=== PATIENT | female | born 1980 | race Caucasian/White ===

== ENCOUNTER → 2021-02-26 | Outpatient (CLI) | payer OTHER ==
[2021-02-26 11:52] LABS: BASO # 0.07 (0.02-0.10); EOS # 0.39 (0.04-0.40); EOS % 4.9 % (1.0-5.0); HEMATOCRIT 39.5 % (37.0-47.0); HEMOGLOBIN 13.1 g/dL (12.5-16.0); LYMPH# 1.85 (1.50-4.00); MEAN CELL VOLUME 84 fl (78-100); MEAN CORPUSCULAR HEMOGLOBIN 28 pg (27-31); MEAN CORPUSCULAR HGB CONC 33 g/dL (33-37); MONO # 0.59 (0.20-0.80); NEU # 5.03 (1.40-6.50); PLATELET COUNT 322 K/mm3 (130-400); RED BLOOD COUNT 4.72 M/mm3 (4.10-5.30); WHITE BLOOD COUNT 7.9 K/mm3 (4.8-10.8)
[2021-02-26 12:08] LABS: ALBUMIN 4.2 g/dL (3.5-5.0); POTASSIUM 4.2 mmol/L (3.5-5.1); SODIUM 137 mmol/L (136-145)
[2021-02-26 12:09] LABS: CALCIUM 10.2 mg/dL (8.3-10.5)
[2021-02-26 12:11] LABS: GLUCOSE 95 mg/dL (65-105); TOTAL PROTEIN 7.3 g/dL (6.4-8.3)
[2021-02-26 12:12] LABS: CARBON DIOXIDE 21 mmol/L (22-29)
[2021-02-26 12:16] LABS: AST-SGOT 22 U/L (5-34)
[2021-02-26 12:17] LABS: ALT/SGPT 24 U/L (0-55)
[2021-02-26 12:32] LABS: TROPONIN-I < 0.03 ng/mL (<0.030)
== END ==
LOC: AMSURD 11:37 → LAB 11:37
PROVIDERS: Physician Assistant
DX: I10 Essential (primary) hypertension (principal); N92.1 Excessive and frequent menstruation with irregular cycle; R07.9 Chest pain, unspecified; E78.5 Hyperlipidemia, unspecified

== ENCOUNTER 2021-06-17 16:47 | Emergency (ER) | payer OTHER ==
[~2021-06-17] VITALS: Ht 160 cm; Wt 72.7 kg
[2021-06-17 17:14] LABS: BASO # 0.05 K/mm3 (0.02-0.10); EOS % 2.7 % (1.0-5.0); HEMATOCRIT 38.6 % (37.0-47.0); HEMOGLOBIN 13.1 g/dL (12.5-16.0); LYMPH# 1.29 K/mm3 (1.50-4.00); MEAN CELL VOLUME 86 fl (78-100); MEAN CORPUSCULAR HEMOGLOBIN 29 pg (27-31); MEAN CORPUSCULAR HGB CONC 34 g/dL (33-37); MEAN PLATELET VOLUME 8.9 fl (7.4-10.4); MONO # 0.38 K/mm3 (0.20-0.80); NEU # 5.37 K/mm3 (1.40-6.50); PLATELET COUNT 305 K/mm3 (130-400); RED BLOOD COUNT 4.48 M/mm3 (4.10-5.30); RED CELL DISTRIBUTION WIDTH 12.2 % (11.5-14.5); WHITE BLOOD COUNT 7.3 K/mm3 (4.8-10.8)
[2021-06-17 17:23] LABS: ALBUMIN 4.4 g/dL (3.5-5.0)
[2021-06-17] MEDS ORDERED: ATENOLOL50 MG PO (17:23)
[2021-06-17 17:24] LABS: POTASSIUM 3.8 mmol/L (3.5-5.1); SODIUM 139 mmol/L (136-145)
[2021-06-17 17:25] LABS: CALCIUM 9.3 mg/dL (8.3-10.5)
[2021-06-17 17:26] LABS: GLUCOSE 105 mg/dL (65-105); TOTAL PROTEIN 7.3 g/dL (6.4-8.3)
[2021-06-17 17:27] LABS: CARBON DIOXIDE 20 mmol/L (22-29)
[2021-06-17 17:31] LABS: AST-SGOT 24 U/L (5-34)
[2021-06-17 17:33] LABS: ALT/SGPT 38 U/L (0-55)
[2021-06-17] MEDS ORDERED: COZAAR25 M1 (17:34)
[2021-06-17 17:42] LABS: TROPONIN-I < 0.03 ng/mL (<0.030)
[2021-06-17 17:51] LABS: D-DIMER 0.62 mg/L FEU (0.15-0.50)
[2021-06-17 20:22] VITALS: BP 137/86
== END 2021-06-17 20:22 | disposition home or self-care (01) ==
LOC: ED 16:47
PROVIDERS: Nurse Practitioner
DX: F41.1 Generalized anxiety disorder (principal); R79.1 Abnormal coagulation profile; I10 Essential (primary) hypertension; Z79.899 Other long term (current) drug therapy
CPT/HCPCS: J2060; J7030; Q9967

== ENCOUNTER → 2023-06-20 | Outpatient (CLI) | payer OTHER ==
[~2023-06-20] MED LIST: ATENOLOL50 MG PO; COZAAR25 M1
[2023-06-20 09:01] LABS: BASO # 0.04 K/mm3 (0.02-0.10); EOS # 0.35 K/mm3 (0.04-0.40); EOS % 5.4 % (1.0-5.0); HEMATOCRIT 42.4 % (37.0-47.0); HEMOGLOBIN 14.8 g/dL (12.5-16.0); LYMPH# 1.69 K/mm3 (1.50-4.00); MEAN CELL VOLUME 91 fl (78-100); MEAN CORPUSCULAR HEMOGLOBIN 32 pg (27-31); MEAN CORPUSCULAR HGB CONC 35 g/dL (33-37); MEAN PLATELET VOLUME 9.2 fl (7.4-10.4); MONO # 0.47 K/mm3 (0.20-0.80); NEU # 3.87 K/mm3 (1.40-6.50); PLATELET COUNT 284 K/mm3 (130-400); RED BLOOD COUNT 4.65 M/mm3 (4.10-5.30); RED CELL DISTRIBUTION WIDTH 11.4 % (11.5-14.5); WHITE BLOOD COUNT 6.4 K/mm3 (4.8-10.8)
[2023-06-20 09:09] LABS: ALBUMIN 4.2 g/dL (3.5-5.0)
[2023-06-20 09:10] LABS: CALCIUM 9.2 mg/dL (8.3-10.5)
[2023-06-20 09:11] LABS: TOTAL PROTEIN 6.7 g/dL (6.4-8.3)
[2023-06-20 09:13] LABS: TOTAL BILIRUBIN 1.2 mg/dL (0.2-1.2)
== END ==
LOC: LAB 08:48
PROVIDERS: Physician Assistant
DX: Z00.00 Encounter for general adult medical examination without abnormal findings (principal); Z13.220 Encounter for screening for lipoid disorders; Z13.29 Encounter for screening for other suspected endocrine disorder; I10 Essential (primary) hypertension; J31.0 Chronic rhinitis; K90.9 Intestinal malabsorption, unspecified; R53.83 Other fatigue

== ENCOUNTER → 2024-07-23 | Outpatient (CLI) | payer OTHER ==
[2024-07-23 11:05] LABS: BASO # 0.04 K/mm3 (0.02-0.10); EOS # 0.35 K/mm3 (0.04-0.40); EOS % 5.9 % (1.0-5.0); HEMATOCRIT 40.8 % (37.0-47.0); LYMPH# 1.67 K/mm3 (1.50-4.00); MEAN CELL VOLUME 89 fl (78-100); MEAN CORPUSCULAR HEMOGLOBIN 30 pg (27-31); MEAN CORPUSCULAR HGB CONC 34 g/dL (33-37); MEAN PLATELET VOLUME 8.9 fl (7.4-10.4); NEU # 3.34 K/mm3 (1.40-6.50); PLATELET COUNT 282 K/mm3 (130-400); RED CELL DISTRIBUTION WIDTH 11.7 % (11.5-14.5); WHITE BLOOD COUNT 5.9 K/mm3 (4.8-10.8)
[2024-07-23 11:14] LABS: ALBUMIN 4.4 g/dL (3.5-5.0)
[2024-07-23 11:15] LABS: CALCIUM 9.8 mg/dL (8.3-10.5)
[2024-07-23 11:16] LABS: TOTAL PROTEIN 7.2 g/dL (6.4-8.3)
[2024-07-23 11:18] LABS: TOTAL BILIRUBIN 0.6 mg/dL (0.2-1.2)
[2024-07-23 23:57] LABS: T3 TOTAL 99 ng/dL (35-193)
== END ==
LOC: LAB 10:50
PROVIDERS: Physician Assistant
DX: Z13.29 Encounter for screening for other suspected endocrine disorder (principal); Z13.1 Encounter for screening for diabetes mellitus; K90.9 Intestinal malabsorption, unspecified; E78.5 Hyperlipidemia, unspecified; R63.5 Abnormal weight gain